=== PATIENT | female | born 1950 | race Caucasian/White ===

== ENCOUNTER 2016-05-16 10:26 | Emergency (ER) | payer OTHER, BC ==
[2016-05-16 10:48] VITALS: TEMP 98
--- NOTE | 2016-05-16 11:25 | PDOC ---
History of Present Illness <Rk Juarez - Last Filed: 05/16/16 14:21> - General History Source: Patient Exam Limitations: No Limitations - History of Present Illness Initial Comments: 05/16/16 14:51 The patient is a 66 year old female, with a significant past medical history of HTN, asthma, COPD, Hep C, and ulcerative colitis, who presents to the emergency department with nasal congestion and chest tightness for 4 days. Patient reports productive cough, sinus headache and pressure, generalized weakness and diffuse body aches. She also reports diarrhea, nausea and vomiting but denies any abdominal pain. She reports recent sick contact with her boss who has a cold. She denies dysuria, frequency, urgency and hematuria. PCP - Dr. García <Marge Huynh - Last Filed: 05/16/16 14:53> - General Chief Complaint: Respiratory Stated Complaint: SOB, NAUSEA, CONGESTION Time Seen by Provider: 05/16/16 11:17 Past History - Past Medical History Anemia: No Asthma: Yes Cancer: Yes (BASAL CELL SKIN CA, SQUAMOUS) Cardiac Disorders: No CVA: No COPD: No CHF: No Dementia: No Diabetes: No GI Disorders: Yes (ULCERATIVE COLITIS) Disorders: No HTN: Yes Hypercholesterolemia: No Liver Disease: Yes Seizures: No Thyroid Disease: No - Surgical History Abdominal Surgery: No Appendectomy: No Cardiac Surgery: No Cholecystectomy: No Lung Surgery: No Neurologic Surgery: No Orthopedic Surgery: No - Psycho/Social/Smoking Cessation Hx Anxiety: No Suicidal Ideation: No Smoking History: Never smoked Have you smoked in the past 12 months: No If you are a former smoker, when did you quit?: 40 yrs ago Hx Alcohol Use: No Drug/Substance Use Hx: No Substance Use Type: None Hx Substance Use Treatment: No <Rk Juarez - Last Filed: 05/16/16 14:21> <Marge Huynh - Last Filed: 05/16/16 14:53> - Past Medical History Allergies/Adverse Reactions: Allergies Allergy/AdvReac Type Severity Reaction Status Date / Time clarithromycin [From Biaxin] Allergy Itching Verified 05/16/16 10:48 Penicillins Allergy Itching Verified 05/16/16 10:48 EGGPLANT Allergy Itching Uncoded 05/16/16 10:48 PEANUTS Allergy Itching Uncoded 05/16/16 10:48 PEPPERS Allergy Itching Uncoded 05/16/16 10:48 Home Medications: Ambulatory Orders Amlodipine Besylate [Norvasc -] 10 mg PO HS 11/10/12 Omeprazole [Prilosec (RX)] 40 mg PO Q2D 11/10/12 Albuterol Sulfate Inhaler - [Ventolin HFA Inhaler -] 2 inh IH QID PRN 11/11/12 Montelukast Na [Singulair -] 10 mg PO HS 11/11/12 Hydrochlorothiazide [Hctz -] 25 mg PO HS 12/22/12 Oseltamivir Phosphate [Tamiflu -] 75 mg PO BID #10 capsule 05/16/16 Prednisone [Deltasone -] 40 mg PO DAILY #8 tablet 05/16/16 Review of Systems - Review of Systems Able to Perform ROS?: Yes Comments:: 05/16/16 14:52 CONSTITUTIONAL: Reported: generalized weakness No reported: Fever, Chills, Diaphoresis, Malaise, Loss of Appetite HEENT: Reported: Nasal congestion, sinus pressure No reported: Rhinorrhea, Throat Pain, Throat Swelling, Difficulty Swallowing, Mouth Swelling, Ear Pain, Eye Pain, Visual Changes CARDIOVASCULAR: No reported: Chest Pain, Syncope, Palpitations, Irregular Heart Rate, Lightheadedness, Peripheral Edema RESPIRATORY: Reported: cough, wheezing. No reported: Shortness of Breath, SOB with Exertion, Orthopnea, Stridor, Hemoptysis GASTROINTESTINAL: Reported: nausea, vomiting, diarrhea No reported: Abdominal pain, Abdominal Distension, Constipation, Melena, Hematochezia GENITOURINARY: No reported: Dysuria, Frequency, Urgency, Hesitancy, Flank Pain, Genital Pain MUSCULOSKELETAL: Reported: diffuse body aches No reported: Myalgia, Arthralgia, Joint Swelling, Back pain, Neck Pain SKIN: No reported: Rash, Itching, Pallor HEMATOLOGIC/IMMUNOLOGIC: No reported: Easy Bleeding, Easy Bruising, Lymphadenopathy, Frequent infections ENDOCRINE: No reported: Unexplained Weight Gain, Unexplained Weight Loss, Heat Intolerance , Cold Intolerance NEUROLOGIC: No reported: Headache, Focal Weakness, Paresthesias, Vertigo, Lightheadedness, Unsteady Gait, Seizure, Mental Status Changes, Incontinence PSYCHIATRIC: No reported: Anxiety, Depression <Marge Huynh - Last Filed: 05/16/16 14:53> *Physical Exam - Vital Signs Last Vital Signs Temp Pulse Resp BP Pulse Ox 98.0 F 103 H 20 153/72 96 05/16/16 10:45 05/16/16 10:45 05/16/16 10:45 05/16/16 10:45 05/16/16 10:45 <Rk Juarez - Last Filed: 05/16/16 14:21> - Vital Signs Last Vital Signs Temp Pulse Resp BP Pulse Ox 98.0 F 103 H 20 153/72 96 05/16/16 10:45 05/16/16 10:45 05/16/16 10:45 05/16/16 10:45 05/16/16 10:45 - Physical Exam Comments: 05/16/16 14:52 GENERAL: The patient is awake, alert, and fully oriented, Nontoxic - in no acute distress. HEAD: Normocephalic, atraumatic. EYES: extraocular movements intact, sclera anicteric, conjunctiva clear. ENT: Normal voice, Moist mucous membranes, mild nasal congestion NECK: Normal range of motion, No JVD LUNGS: +scattered wheezes worse on the right than left. Breath sounds equal, clear to auscultation bilaterally. No no rhonchi, no rales. HEART: Regular rate and rhythm, normal S1 and S2 without murmur, rub or gallop. ABDOMEN: Soft, nontender, normoactive bowel sounds. No guarding, no rebound. No masses. No CVA tenderness EXTREMITIES: Normal range of motion, no edema. No clubbing or cyanosis. No cords , erythema, or tenderness. NEUROLOGICAL: No facial asymmetry, Normal speech, normal gait. PSYCH: Normal mood, normal affect. SKIN: Warm, Dry, normal turgor, R ortiz, sp mohs surgery - wound with mild surrounding erythema without discharge, warmth, induration, tenderness, (pt states this is better than 4 days ago when she had the sutures removed) <Marge Huynh - Last Filed: 05/16/16 14:53> ED Treatment Course - ADDITIONAL ORDERS Additional order review: 05/16/16 11:50 Influenza Types A,B Antigen (SWEETIE) - Final Nasopharyngeal Swab - Final - Medications Given in the ED: ED Medications Discontinued Medications Generic Name Dose Route Start Last Admin Trade Name Freq PRN Reason Stop Dose Admin Albuterol/Ipratropium 1 amp 05/16/16 11:40 05/16/16 11:52 Duoneb - NEB 05/16/16 11:41 1 amp ONCE ONE Administration Prednisone 60 mg 05/16/16 11:40 05/16/16 11:57 Deltasone - PO 05/16/16 11:41 60 mg ONCE ONE Administration <Marge Huynh - Last Filed: 05/16/16 14:53> Medical Decision Making - Medical Decision Making 05/16/16 11:42 66y F hx of asthma/copd, UC, htn, hl, presents with nasal congestion for several days associated with nonproductive cough, fatigue, decreased appettite w /o associated fever and pt endorsed increased chest tignthess today that is improved with nebs. pt denies associated chest pain, leg swelling, abd pain. suspect copd exacerbation, possible atypical flu will ck cxr to r/o pna, flus swab, nebs for copd, prednisone will reassess A portion of this note was documented by scribe services under my direction. I have reviewed the details of the note, within reason, and agree with the documentation with the following case summary and management plan written by me 05/16/16 14:19 influenza positive cxr negative pt feeling improved will dc with supprotive mangaement return precuations were discussed I discussed the physical exam findings, ancillary test results and final diagnoses with the patient. I answered all of the patient's questions. The patient was satisfied with the care received and felt comfortable with the discharge plan and treatment plan. The patient will call their primary care physician within 24 hours to arrange follow-up and will return to the Emergency Department with any new, persistent or worsening symptoms. <Rk Juarez - Last Filed: 05/16/16 14:21> *DC/Admit/Observation/Transfer - Discharge Dispostion Admit: No <Rk Juarez - Last Filed: 05/16/16 14:21> - Attestations Scribe Attestion: 05/16/16 14:53 Documentation prepared by LEO Orellana, acting as medical pathologist for Rk Juarez MD. <Marge Huynh - Last Filed: 05/16/16 14:53> Diagnosis at time of Disposition: Influenza A Acute asthma exacerbation Qualifiers: Asthma severity: unspecified severity Qualified Code(s): J45.901 - Unspecified asthma with (acute) exacerbation - Discharge Dispostion Disposition: HOME Condition at time of disposition: Improved - Prescriptions Prescriptions: Prednisone [Deltasone -] 40 mg PO DAILY #8 tablet Oseltamivir Phosphate [Tamiflu -] 75 mg PO BID #10 capsule - Referrals Referrals: Tien García MD [Primary Care Provider] - - Patient Instructions Printed Discharge Instructions: DI for Asthma -- Adult, DI for Influenza -- Adult Additional Instructions: Return to the emergency department immediately with ANY new, persistent or worsening symptoms. Take the albuterol as needed for the shortness of breath Take tylenol for any discomfort/body aches/fever. You MUST call and follow up with your doctor tomorrow for further evaluation of your symptoms. Results were discussed with you. Please make sure your doctor reviews the results of your emergency evaluation.
[2016-05-16] MEDS ORDERED: predniSONE 20 MG TABLET (UD) PO ONE (11:40)
[2016-05-16] MEDS ORDERED: ALBUTEROL SO4 2.5/IPRATROPIUM 0.5 INH SOL 3 ML VIAL.NEB. NEB ONE ×2 (11:40→11:42)
[2016-05-16] MEDS ORDERED: predniSONE 20 MG TABLET (UD) ONE (11:54)
[2016-05-16 16:03] VITALS: BP 144/68; PULSE 89
--- NOTE | 2016-05-16 16:15 | EKG ---
Test Reason : Blood Pressure : / mmHG Vent. Rate : 104 BPM Atrial Rate : 104 BPM P-R Int : 144 ms QRS Dur : 090 ms QT Int : 342 ms P-R-T Axes : 051 003 068 degrees QTc Int : 449 ms SINUS TACHYCARDIA POSSIBLE LEFT ATRIAL ENLARGEMENT POSSIBLE ANTERIOR INFARCT , AGE UNDETERMINED ABNORMAL ECG WHEN COMPARED WITH ECG OF 24-MAR-2014 13:13, NO SIGNIFICANT CHANGE WAS FOUND Confirmed by MARISSA SINGLETON MD ([id number]) on 05/16/2016 4:15:29 PM Referred By: Confirmed By:MARISSA SINGLETON MD
== END 2016-05-16 16:06 | disposition home or self-care (01) ==
LOC: JER 10:26
DX: J09.X2 Influenza due to identified novel influenza A virus with other respiratory manifestations (principal); J45.901 Unspecified asthma with (acute) exacerbation; I10 Essential (primary) hypertension; Z85.828 Personal history of other malignant neoplasm of skin; Z87.19 Personal history of other diseases of the digestive system
CPT/HCPCS: 71020-TC; 87804; 93005; 93010; 99283-25

== ENCOUNTER 2020-10-04 14:00 | Emergency (ER) | payer OTHER, BC ==
[2020-10-04 14:06] VITALS: BP 165/85; PULSE 75; TEMP 97.9; BMI 29.2
[2020-10-04] MEDS ORDERED: LIDOCAINE 5% TOPICAL PATCH TP ONE (15:02)
[2020-10-04] MEDS ORDERED: IBUPROFEN 600 MG TABLET (FP) PO ONE ×2 (15:02→15:04)
[2020-10-04] MEDS ORDERED: LIDOCAINE 5% TOPICAL PATCH ONE (15:04)
[2020-10-04] MEDS ORDERED: LIDOCAINE PATCH REMOVAL MC SCH (22:00)
== END 2020-10-04 17:06 | disposition home or self-care (01) ==
LOC: JERFT 14:00
DX: S13.4XXA Sprain of ligaments of cervical spine, initial encounter (principal)
CPT/HCPCS: 72040-TC; 99283-25

== ENCOUNTER 2021-09-25 04:38 | Day surgery (SDC) | payer OTHER, BC ==
[2021-09-23 15:31] VITALS: BMI 27.4
[2021-09-25 12:44] VITALS: BP 136/58; PULSE 67; TEMP 97.7
== END 2021-09-25 12:45 | disposition home or self-care (01) ==
LOC: JASU-ENDO 04:38
PROVIDERS: ATTEND Internal Medicine Gastroenterology
PROC: 0DBH8ZX Excision of Cecum, Via Natural or Artificial Opening Endoscopic, Diagnostic (ICD-10-PCS; principal; 2021-09-25 11:45)
DX: Z12.11 Encounter for screening for malignant neoplasm of colon (principal); K57.30 Diverticulosis of large intestine without perforation or abscess without bleeding; D12.0 Benign neoplasm of cecum
CPT/HCPCS: 88305-TC